=== PATIENT | male | born 1995 | race Caucasian/White ===

== ENCOUNTER 2018-01-22 23:59 | Emergency (ER) | payer BC ==
--- NOTE | 2018-01-23 00:02 | ER Report ---
History and Physical Time Seen By MD: 00:02 HPI/ROS CHIEF COMPLAINT: Left distal forearm deformity status post fall from a tree HISTORY OF PRESENT ILLNESS: Patient is a 22-year-old male here with complaints of left upper extremity deformity of the distal radius and wrist after falling out of a tree approximately 10-15 foot fall. Patient reports pain at the site however denies any further injuries at this time. Patient was neurovascularly intact at time of evaluation. Denies neck pain, chest pain, shortness of breath , abdominal pain, nausea, vomiting. Patient admits to alcohol and drug use however is alert and oriented, conversive and not altered. REVIEW OF SYSTEMS: Constitutional: No fever, no chills, + intoxicated Eyes: No discharge. ENT: No sore throat. Cardiovascular: No chest pain, no palpitations. Respiratory: No cough, no shortness of breath. Gastrointestinal: No abdominal pain, no vomiting. Genitourinary: No hematuria. Musculoskeletal: No back pain,+ left forearm ecchymosis and obvious dorsally displaced wrist Skin: No rashes. Neurological: No headache, NV intact in upper extremities. Allergies: Coded Allergies: No Known Drug Allergies (Unverified , 01/23/18) Home Meds Active Scripts Oxycodone Hcl/Acetaminophen (PERCOCET 5-325 MG TABLET) 1 Each Tablet, 1 EACH PO Q4H Y for PAIN, #12 TAB 0 Refills Prov:JULIA PIERRE DO 01/23/18 Constitutional Physical Exam General Appearance: The patient is alert, has no immediate need for airway protection and no signs of toxicity. + mild etoh and marijuana intoxication Eyes: Pupils equal and round no pallor or injection. ENT, Mouth: Mucous membranes are moist. Respiratory: There are no retractions, lungs are clear to auscultation. Cardiovascular: Regular rate and rhythm. Gastrointestinal: Abdomen is soft and non tender, no masses, bowel sounds normal. Neurological: No focal neuro deficits Skin: Warm and dry, no rashes, + ecchymosis of left wrist Musculoskeletal: Neck is supple non tender. + LUE wrist and forearm deformity, sensation and perfusion intact DIFFERENTIAL DIAGNOSIS: After history and physical exam differential diagnosis was considered for fracture, dislocation, open or closed fracture, contusion, abrasion. Medical Decision Making EKG/Imaging Imaging WRIST LEFT MIN 3 VIEW, FOREARM LEFT HISTORY: fall, deformity Additional history: None COMPARISON: None. FINDINGS: 3 views left wrist and 2 views left forearm There is a comminuted angulated and displaced fracture through the distal radial epiphysis and metaphysis with involvement of the radiocarpal joint. There is 40 degrees apex anterior angulation with fracture line extending into the radiocarpal joint without appreciable articular step-off. There is associated impaction.. The ulna and carpals are intact. No fracture seen in the proximal radius or ulna and elbow joint appears grossly normal. IMPRESSION: Impacted, angulated, and comminuted distal radial fracture with involvement of the radiocarpal joint WRIST LEFT MIN 3 VIEW, FOREARM LEFT HISTORY: fall, deformity Additional history: None COMPARISON: None. FINDINGS: 3 views left wrist and 2 views left forearm There is a comminuted angulated and displaced fracture through the distal radial epiphysis and metaphysis with involvement of the radiocarpal joint. There is 40 degrees apex anterior angulation with fracture line extending into the radiocarpal joint without appreciable articular step-off. There is associated impaction.. The ulna and carpals are intact. No fracture seen in the proximal radius or ulna and elbow joint appears grossly normal. IMPRESSION: Impacted, angulated, and comminuted distal radial fracture with involvement of the radiocarpal joint WRIST LEFT MIN 3 VIEW HISTORY: post fracture reduction Additional history: None COMPARISON: There is made to prereduction radiographs earlier today FINDINGS: Again seen is a comminuted impacted and angulated distal radial fracture with intra-articular involvement. The apex dorsal angulation has been slightly reduced from 40 degrees previously now measuring 30 degrees. There is also slight reduction in the impaction component. Fracture extending the articular surface appears unchanged with 2 mm of diastases and alignment otherwise unchanged. IMPRESSION: Status post closed reduction there is slight improvement in the angulation and impaction of the comminuted distal radial fracture but still significant residual deformity ED Course/Re-evaluation ED Course Patient is a 22-year-old male here status post fall from a tree with obvious deformity of the left wrist, neurovascular exam is intact. Patient was noted to have a displaced and angulated and impacted distal radius fracture. A hematoma block was performed by myself using lidocaine. Patient was sedated using ketamine and propofol for attempted reduction of the fracture however due to the location of the fracture, the wrist was relatively unstable and difficult to reduce. An Ortho-Glass splint was put in place. Neurovascular exam was rechecked and was intact with good perfusion. Post reduction films showed mild reduction of the fracture. I discussed the patient with Dr. Castellanos who looked at the images as well and recommended follow-up in the next several days for possible operative management. I updated the patient regarding the plan and he was discharged in stable condition with his parents. Please see nursing documentation for sedation details. Procedure Procedural sedation was performed using ketamine and propofol please see nursing notes for dosing details and times of administration. An Ortho-Glass splint was put in place and Dr. Castellanos was contacted. NV exam intact post reduction and splinting. Decision to Disposition Date: Jan 23, 2018 Decision to Disposition Time: 03:36 Depart Departure Latest Vital Signs Impression: Primary Impression: Distal radius fracture, left Condition: Improved Disposition: HOME OR SELF-CARE Referrals: MARK GRIMM MD New Scripts Oxycodone Hcl/Acetaminophen (PERCOCET 5-325 MG TABLET) 1 Each Tablet 1 EACH PO Q4H Y for PAIN, #12 TAB 0 Refills Prov: JULIA PIERRE DO 01/23/18 Patient Instructions: Arm Fracture in Adults (ED) Additional Instructions: Please follow up with orthopedics in the next several days. You may take 1 tablet of Percocet every 6-8 hours as needed for pain control. Please return promptly if you develop loss of sensation in her fingers, increased pain, illness, loss of perfusion or pulse. JULIA PIERRE DO Jan 23, 2018 00:02
[2018-01-23] MEDS ORDERED: LIDOCAINE 1% MDV 200 MG/20 ML INFIL ONE (00:10)
[2018-01-23] MEDS ORDERED: LIDOCAINE 2% 200MG/10ML UROJET TP ONE (00:20)
[2018-01-23] MEDS ORDERED: KETAMINE HCL 500 MG/5 ML VIAL IVP ONE (00:45)
[2018-01-23] MEDS ORDERED: PROPOFOL EMUL 10MG/ML 20 ML VL IV ONE (00:45)
[2018-01-23] MEDS ORDERED: LR 500 ML BAG 500 ML IV ONE (01:00)
--- NOTE | 2018-01-23 01:02 | RADIOLOGY IMAGING REPORT ---
FACILITY: [facility] - [place] PATIENT NAME: Stevie Patrick : 1995 MR: [id number] V: [id number] EXAM DATE: ORDERING PHYSICIAN: JULIA PIERRE TECHNOLOGIST: Location: [facility] Patient: Stevie Patrick : 1995 Visit/Account:[id number] Date of Sevice: 01/23/2018 WRIST LEFT MIN 3 VIEW, FOREARM LEFT HISTORY: fall, deformity Additional history: None COMPARISON: None. FINDINGS: 3 views left wrist and 2 views left forearm There is a comminuted angulated and displaced fracture through the distal radial epiphysis and metaph ysis with involvement of the radiocarpal joint. There is 40 degrees apex anterior angulation with fra cture line extending into the radiocarpal joint without appreciable articular step-off. There is asso ciated impaction.. The ulna and carpals are intact. No fracture seen in the proximal radius or ulna a nd elbow joint appears grossly normal. IMPRESSION: Impacted, angulated, and comminuted distal radial fracture with involvement of the radiocarpal joint Report Dictated By: Riki Reagan MD at 01/23/2018 12:52 AM Report E-Signed By: Riki Reagan MD at 01/23/2018 12:58 AM WSN:[id number]
--- NOTE | 2018-01-23 01:02 | RADIOLOGY IMAGING REPORT ---
FACILITY: [facility] PATIENT NAME: Stevie Patrick : 1995 MR: [id number] V: [id number] EXAM DATE: ORDERING PHYSICIAN: JULIA PIERRE TECHNOLOGIST: Location: [facility] [place] Patient: Stevie Patrick : 1995 Visit/Account:[id number] Date of Sevice: 01/23/2018 WRIST LEFT MIN 3 VIEW, FOREARM LEFT HISTORY: fall, deformity Additional history: None COMPARISON: None. FINDINGS: 3 views left wrist and 2 views left forearm There is a comminuted angulated and displaced fracture through the distal radial epiphysis and metaph ysis with involvement of the radiocarpal joint. There is 40 degrees apex anterior angulation with fra cture line extending into the radiocarpal joint without appreciable articular step-off. There is asso ciated impaction.. The ulna and carpals are intact. No fracture seen in the proximal radius or ulna a nd elbow joint appears grossly normal. IMPRESSION: Impacted, angulated, and comminuted distal radial fracture with involvement of the radiocarpal joint Report Dictated By: Riki Reagan MD at 01/23/2018 12:52 AM Report E-Signed By: Riki Reagan MD at 01/23/2018 12:58 AM WSN:[id number]
[2018-01-23] MEDS ORDERED: IBUPROFEN 800 MG TAB PO ONE (02:00)
[2018-01-23] MEDS ORDERED: fentaNYL CITR 100 MCG/2 ML AMP IVP ONE (02:25)
--- NOTE | 2018-01-23 02:47 | RADIOLOGY IMAGING REPORT ---
FACILITY: [facility] PATIENT NAME: Stevie Patrick : 1995 MR: [id number] V: [id number] EXAM DATE: ORDERING PHYSICIAN: JULIA PIERRE TECHNOLOGIST: Location: [facility] [place] Patient: Stevie Patrick : 1995 Visit/Account:[id number] Date of Sevice: 01/23/2018 WRIST LEFT MIN 3 VIEW HISTORY: post fracture reduction Additional history: None COMPARISON: There is made to prereduction radiographs earlier today FINDINGS: Again seen is a comminuted impacted and angulated distal radial fracture with intra-articular involve ment. The apex dorsal angulation has been slightly reduced from 40 degrees previously now measuring 3 0 degrees. There is also slight reduction in the impaction component. Fracture extending the articula r surface appears unchanged with 2 mm of diastases and alignment otherwise unchanged. IMPRESSION: Status post closed reduction there is slight improvement in the angulation and impaction of the commi nuted distal radial fracture but still significant residual deformity Report Dictated By: Riki Reagan MD at 01/23/2018 2:39 AM Report E-Signed By: Riki Reagan MD at 01/23/2018 2:44 AM WSN:[id number]
[2018-01-23] MEDS ORDERED: OXYC-865 PO (03:15)
[2018-01-23 03:16] VITALS: BP 131/100
[2018-01-23] MEDS ORDERED: oxyCODONE/ACETAMIN 5/325MG TH 2 TAB/BOTTLE PO ONE (03:25)
== END 2018-01-23 03:42 | disposition home or self-care (01) ==
LOC: ER 01-23 00:25
DX: S52.502A Unspecified fracture of the lower end of left radius, initial encounter for closed fracture (principal); W14.XXXA Fall from tree, initial encounter
CPT/HCPCS: 25605; 73090; 73110; 96361; 96374; 96375; 99153; 99284; J2001; J2704; J3010; J7120